=== PATIENT | female | born 1985 | race Caucasian/White ===

== ENCOUNTER → 2023-06-04 | Outpatient (CLI) | payer BC ==
--- NOTE | 2023-06-05 11:06 | MM ---
Reason for Exam: Screening (asymptomatic). Baseline mammogram. Patient History: Menarche at age 10. First Full-Term at age 17. Patient has history of breast feeding. Maternal grandmother had breast cancer, age 75. Last menstrual period: 05/05/2023 Risk Values: Jazmine 5 year model risk: 0.4%. NCI Lifetime model risk: 7.4%. Prior Study Comparison: Patient's first Mammogram. Tissue Density: The breasts are extremely dense, which lowers the sensitivity of mammography. Findings: Analyzed By CAD. There is no suspicious group of microcalcifications or new suspicious mass in either breast. Benign-appearing calcifications in the right breast. There is a grouped area of calcification seen posteriorly in the left breast. Recommend magnification views of the bilateral breast. Overall Assessment: Incomplete: need additional imaging evaluation, BI-RAD 0 Management: Diagnostic Mammogram of both breasts. . Patient should continue monthly self-breast exams. A clinical breast exam by your physician is recommended on an annual basis. This exam should not preclude additional follow-up of suspicious palpable abnormalities. Note on Jazmine scores and lifetime risk: 1. A Jazmine score greater than 3% is considered moderate risk. If this is the case, consider specialist referral to assess eligibility for a risk reducing agent. 2. If overall lifetime risk for the development of breast cancer is 20% or higher, the patient may qualify for future screening with alternating mammogram and breast MRI. Electronically signed and approved by: Freddy Cornell M.D. Radiologis
== END | disposition home or self-care (01) ==
LOC: RADMAMWWP 07:56
PROVIDERS: ATTEND Family Medicine
DX: Z12.31 Encounter for screening mammogram for malignant neoplasm of breast (principal); Z80.3 Family history of malignant neoplasm of breast
CPT/HCPCS: 77063; 77067

== ENCOUNTER → 2023-06-12 | Outpatient (CLI) | payer BC ==
--- NOTE | 2023-06-12 08:52 | MM ---
Reason for Exam: Clinical finding. Last screening mammogram was performed less than 1 month ago. Patient History: Menarche at age 10. First Full-Term at age 17. Patient has history of breast feeding. Maternal grandmother had breast cancer, age 75. Last menstrual period: 06/06/2023 Risk Values: Jazmine 5 year model risk: 0.4%. NCI Lifetime model risk: 7.4%. Prior Study Comparison: 06/04/2023 Bilateral MG 3D screening mammo w/cad, [facility]. Tissue Density: The breasts are extremely dense, which lowers the sensitivity of mammography. Findings: Analyzed By CAD. There are segmental round calcifications within the posterior right breast. Suspicious group of calcifications is not identified on the right. Within the lower outer posterior aspect left breast there is a cluster of small round calcifications. These are considered suspicious and stereotactic core biopsy is recommended. Overall Assessment: Suspicious, BI-RAD 4 Management: Stereotactic Core Biopsy of the left breast. A negative mammogram report should not preclude additional follow up of suspicious palpable abnormalities. Patient should continue monthly self breast exam. A clinical breast exam by your physician is recommended on an annual basis and results should be correlated with mammographic findings. Electronically signed and approved by: Harley Frederick D.O. Radiologis
== END | disposition home or self-care (01) ==
LOC: RADMAMWWP 07:03
PROVIDERS: ATTEND Family Medicine
DX: R92.343 Mammographic extreme density, bilateral breasts (principal); R92.1 Mammographic calcification found on diagnostic imaging of breast; Z80.3 Family history of malignant neoplasm of breast
CPT/HCPCS: 77062; 77066

== ENCOUNTER → 2023-06-19 | Outpatient (CLI) | payer BC | LOC: WWCWWP 07:17 | PROVIDERS: ATTEND Surgery | DX: Z53.9 Procedure and treatment not carried out, unspecified reason (principal) ==

== ENCOUNTER → 2023-06-19 | Day surgery (SDC) | payer BC ==
[~2023-06-19] MED LIST: ALPRAZolam 0.25 MG TAB PO PRN
[2023-06-19] MEDS: ALPRAZolam 0.25 MG TAB PO PRN (07:43)
[2023-06-19 07:55] VITALS: RESP 16; TEMP 98.1
--- NOTE | 2023-06-19 08:22 | P.GSCN ---
History of Present Illness Consult date: 06/19/23 Reason for Consult: Left breast microcalcifications of concern Requesting physician: Elvis Vail History of present illness: Yue is a 37-year-old female who had a bilateral mammogram performed on 06-04-2023. Diagnostic mammogram of both breast was recommended. The diagnostic mammogram of both breast was performed on 06-12-2023. She was noted to have in the lower outer posterior left breast a cluster of small round calcifications considered suspicious and stereotactic core biopsy was recommended. First this is the patient's first mammogram. This was done as a screening she has not felt anything of concern in either breast. She has never had any surgery on her breast. She is not complaining of any recent trauma or infection in the breast. She is not complaining of any nipple discharge or skin changes of the breast. Caffeine: 2 drinks/day nicotine: none chocolate: occasional BCP: used for about 1 year Family History: maternal grandmother: breast cancer and uterine cancer colon cancer in her 70's maternal uncle: colon cancer Hormonal History: menarche: 10 breast fed: yes, age at first : 17 periods regular, LMP: 1 week ago hormones: none Surgical history: Medical history: Graves disease Social History: nicotine: none alcohol: occasional drugsL none Review of Systems - Constitutional Denies fever, Denies weight loss - EENT EENT Comment(s): kerkonas disease Eyes: bilateral blurred vision Ears: deny: decreased hearing, tinnitus Ears, nose, mouth and throat: Denies dysphagia - Breasts bilateral: as per HPI - Cardiovascular Denies chest pain, Denies shortness of breath - Respiratory Denies cough, Denies 7 - Gastrointestinal Reports as per HPI - Genitourinary Genitourinary: Denies dysuria, Denies hematuria - Musculoskeletal Reports as per HPI - Integumentary Denies rash, Denies unusual bruising - Neurological Denies headaches, Denies syncope - Psychiatric Reports as per HPI - Endocrine Reports as per HPI - Hematologic/Lymphatic Denies easy bleeding, Denies easy bruising - Allergic/Immunologic Reports as per HPI Past Medical History Past Medical History: No Reported History History of Any Multi-Drug Resistant Organisms: None Reported Past Surgical History: Section Past Anesthesia/Blood Transfusion Reactions: No Reported Reaction - Sexual Orientation/Gender Identity What was your sex assigned at ?: Female Preferred Pronoun: She/Her/Hers Past Psychological History: No Psychological Hx Reported Smoking Status: Never smoker Past Alcohol Use History: Occasional Past Drug Use History: None Reported Medications and Allergies Home Medications Medication Instructions Recorded Confirmed Type No Known Home Medications 06/12/23 06/19/23 History Allergies Allergy/AdvReac Type Severity Reaction Status Date / Time Penicillins Allergy Unknown Verified 06/19/23 07:35 Surgical - Exam Vital Signs Temp Pulse Resp BP 98.1 F 91 16 137/82 06/19/23 07:44 06/19/23 07:44 06/19/23 07:44 06/19/23 07:44 - General well developed, well nourished, no distress - Eyes normal ocular movement - Neck trachea midline - Respiratory normal respiratory effort, clear to auscultation - Cardiovascular Rhythm: regular Heart Sounds: normal: S1, S2 - Abdomen Abdomen: soft, non tender, no guarding, no rigid, no rebound - Integumentary normal turgor - Neurologic no disoriented, no combative - Musculoskeletal normal gait - Psychiatric oriented to time, oriented to person, oriented to place, speech is normal, memory intact Breast Exam: BRA: 42D Inspection: Bilateral grade 3 ptosis Palpation: Right breast: Multi positional exam no dominant masses or nodules of concern Right axilla: No adenopathy of concern Left breast: Multi positional exam no dominant masses or nodules of concern Left axilla: No adenopathy of concern Results Mammogram reviewed Assessment and Plan Assessment: Impression: Microcalcifications of concern left breast lower outer quadrant Family history of breast cancer Plan: Stereotactic core biopsy left breast Risk and benefits of the procedure discussed with the patient and her significant other Risk include but are not limited to bleeding, infection, reaction to the anesthetic. If the area of concern cannot be adequately targeted then the procedure may not be successful. If the biopsy results are discordant then fur ther tissue acquisition may be necessary. The patient understands and wishes to proceed. CC: Dr. Vail
[2023-06-19 10:02] VITALS: BP 105/65; PULSE 71
--- NOTE | 2023-06-19 14:23 | MM ---
Date of Procedure: 06/19/23 Preoperative Diagnosis: Left breast microcalcifications of concern lower outer quadrant Postoperative Diagnosis: Same Procedure(s) Performed: Left breast stereotactic core biopsy Anesthesia: local Surgeon: Lesa Lundberg Pathology: other (Radiograph of specimen reveals microcalcifications of concern) Condition: stable Disposition: same day (Radiograph of specimen reveals microcalcifications of concern) Indications for Procedure: Microcalcifications of concern left breast lower outer quadrant Operative Findings: Radiograph of specimen reveals microcalcifications of concern Description of Procedure: The patient is a 37-year-old white female who on a screening mammogram was noted to have microcalcifications of concern in the left breast in the lower outer quadrant. This was reviewed with Dr. Mamta Tariq. A lateral to medial approach for stereo biopsy was recommended. The patient was examined and risk and benefits of the procedure were discussed with the patient and her significant other and they wish to proceed. The patient was brought to the stereotactic core biopsy room. She was positioned in the upright chair. A journeyman lineman film was obtained. A lateral to medial approach was utilized. The area of concern was identified. The lesion was targeted. The breast was prepped using chlorhexidine. 20 cc of 1% lidocaine were used to anesthetize the area of concern. A 9 gauge vacuum- assisted core rotating biopsy needle was driven to the correct coordinates. A prefire film was obtained and the needle was noted to be in the correct location. The needle was fired. A post fire film was obtained and the needle was noted to be in the correct location. 16 core biopsy specimens were obtained. The patient became dizzy at this point and a secure dago Top-Hat clip was placed. The patient was placed in the recumbent position and her dizziness subsided. Radiograph of the specimen revealed the area of concern had been adequately sampled. The patient will follow-up with Dr. Meade next week. The specimen was sent to pathology. Postprocedure radiograph was performed to assure clip placement in the correct location. YAO
== END ==
LOC: RADMAMWWP 07:32
PROVIDERS: ATTEND Surgery
DX: N60.12 Diffuse cystic mastopathy of left breast (principal); N60.82 Other benign mammary dysplasias of left breast; Z88.0 Allergy status to penicillin; Z98.891 History of uterine scar from previous surgery
CPT/HCPCS: 88305; 19081; A4648; J2001

== ENCOUNTER → 2023-06-24 | Outpatient (CLI) | payer BC ==
--- NOTE | 2023-06-24 10:36 | P.PN ---
Subjective Progress Note Date: 06/24/23 Principal diagnosis: Fibrocystic breast changes Sara is a 37-year-old female status post stereotactic core biopsy of the left breast on 06-19-2023. Pathology revealed breast with fibrocystic changes, cyst with apocrine metaplasia and intraluminal calcifications. Reviewed with r adiology believe this to be benign concordant. Objective - Constitutional General appearance: Present: cooperative - EENT Eyes: Present: EOMI ENT: Present: hearing grossly normal - Neck Neck: Present: normal ROM - Respiratory Respiratory: bilateral: CTA - Cardiovascular Heart sounds: normal: S1, S2 - Integumentary Integumentary Comment(s): Biopsy site mild ecchymosis No evidence of infection or hematoma Assessment and Plan Assessment: Impression: Fibrocystic changes left breast stereo biopsy Plan: Patient doing well follow-up in 6 months with left breast mammogram Patient given copy of pathology report Patient will follow-up sooner any questions or concerns CC: Dr. Vail
[2023-06-24 10:54] VITALS: BP 141/90; PULSE 95; RESP 17; TEMP 98.1
== END ==
LOC: WWCWWP 10:21
PROVIDERS: ATTEND Surgery
DX: N60.12 Diffuse cystic mastopathy of left breast (principal); Z88.0 Allergy status to penicillin

== ENCOUNTER → 2024-02-24 | Outpatient (CLI) | payer BC ==
--- NOTE | 2024-02-24 08:42 | MM ---
Reason for Exam: Follow-up at short interval from prior study. Last screening mammogram was performed 9 month(s) ago. Patient History: Menarche at age 10. First Full-Term at age 17. Patient has history of breast feeding. 06/19/2023, Benign MG stereo VAD BX LT on the left side. Maternal grandmother had breast cancer, age 75. Risk Values: Jazmine 5 year model risk: 0.6%. NCI Lifetime model risk: 9.0%. Prior Study Comparison: 06/04/2023 Bilateral MG 3D screening mammo w/cad, [facility]. 06/12/2023 Bilateral MG 3D work up w/cad [facility], [facility]. Tissue Density: Left: The breasts are heterogeneously dense, which may obscure small masses. Findings: Analyzed By CAD. The pattern is stable. Core marker is in the outer posterior left breast. Number calcifications are diminished. No increasing calcifications. No suspicious groups of microcalcifications, spiculated or lobular masses, architectural distortion or other secondary signs of malignancy are mammographically apparent. Overall Assessment: Benign, BI-RAD 2 Management: Screening Mammogram of both breasts in 6 months. A negative mammogram report should not preclude additional follow up of suspicious palpable abnormalities. Patient should continue monthly self breast exam. A clinical breast exam by your physician is recommended on an annual basis and results should be correlated with mammographic findings. Note on Jazimne scores and lifetime risk: 1. A Jazmine score greater than 3% is considered moderate risk. If this is the case, consider specialist referral to assess eligibility for a risk reducing agent. 2. If overall lifetime risk for the development of breast cancer is 20% or higher, the patient may qualify for future screening with alternating mammogram and breast MRI. [facility], , 02/24/2024 8:39 AM. Electronically signed and approved by: Harley Frederick D.O. Radiologis
== END | disposition home or self-care (01) ==
LOC: RADMAMWWP 07:59
PROVIDERS: ATTEND Surgery
DX: R92.8 Other abnormal and inconclusive findings on diagnostic imaging of breast (principal); Z80.3 Family history of malignant neoplasm of breast; R92.332 Mammographic heterogeneous density, left breast
CPT/HCPCS: 77061; 77065